=== PATIENT | male | born 1985 | race Caucasian/White ===

== ENCOUNTER 2017-11-22 17:59 | Emergency (ER) | payer MEDICAID, OTHER ==
[2017-11-22 18:17] VITALS: BP 133/65
--- NOTE | 2017-11-22 18:51 | UC ---
Cardiac HPI - HPI Summary HPI Summary: Patient here with girlfriend and brother complaining of sudden onset of midsternal, sharp, burning chest pain that started while he was sitting eating dinner. He denies any recent unusual stress or substance abuse. He complains of associated shortness of breath, dizziness, nausea, headache and tunnel vision. He is extremely anxious about his symptoms as his brother a year ago at age 30 from a cardiac arrest. - History of Current Complaint Chief Complaint: UCChestPain Stated Complaint: SOB Time Seen by Provider: 11/22/17 18:03 Hx Obtained From: Patient, Family/Shoe Dyer - GIRLFRIEND, BROTHER Onset/Duration: Sudden Onset, Lasting Hours - 1 HOUR Initial Severity: Moderate Current Severity: Moderate Pain Intensity: 5 Chest Pain Location: Mid Sternal Character: Sharp/Stabbing Aggravating Factor(s): Nothing Alleviating Factor(s): Nothing Associated Signs & Symptoms: Positive: Chest Pain, Vision Changes, Anxiety, Headaches, Dizziness, SOB, Nausea/Vomiting - Geo melena - Allergy/Home Medications Allergies/Adverse Reactions: Allergies Allergy/AdvReac Type Severity Reaction Status Date / Time haloperidol Allergy Anaphylatic Verified 11/22/17 18:09 Shock Home Medications: Home Medications Buprenorphine HCl/Naloxone HCl [Suboxone 8 mg-2 mg Sl Film] 1 mis SL BID [History Confirmed 11/22/17] LORazepam TAB(*) [Ativan 0.5 MG TAB (*)] 0.5 mg PO BEDTIME PRN 11/22/17 [ History Confirmed 11/22/17] Sertraline HCl [Zoloft] 1 tab PO DAILY 11/22/17 [History Confirmed 11/22/17] PMH/Surg Hx/FS Hx/Imm Hx Cardiovascular History: Hypertension Psychological History: Anxiety - Surgical History Surgical History: Yes Surgery Procedure, Year, and Place: Appendectomy - Family History Known Family History: Positive: Cardiac Disease, Renal Disease - Social History Alcohol Use: Occasionally Alcohol Amount: states he had one beer today Substance Use Type: Prescribed Substance Use Comment - Amount & Last Used: xANAX as needed Smoking Status (MU): Heavy Every Day Tobacco Smoker Amount Used/How Often: 1ppd Review of Systems Constitutional: Negative Eyes: Other - TUNNEL VISION ENT: Negative Respiratory: Shortness Of Breath Cardiovascular: Chest Pain Gastrointestinal: Nausea Genitourinary: Negative Neurological: Headache Psychological: Anxious All Other Systems Reviewed And Are Negative: Yes Physical Exam Triage Information Reviewed: Yes Appearance: No Pain Distress, Well-Nourished, Other: - APPEARS ANXIOUS Vital Signs: Initial Vital Signs Temp 99.1 F 11/22/17 18:11 Pulse 79 11/22/17 18:11 Resp 22 11/22/17 18:11 BP 133/65 11/22/17 18:11 Pulse Ox 99 11/22/17 18:11 Vital Signs Reviewed: Yes Eyes: Positive: Conjunctiva Clear ENT: Positive: Hearing grossly normal Neck: Positive: Supple, Nontender, No Lymphadenopathy Respiratory Exam: Normal Cardiovascular Exam: Normal Abdomen Description: Positive: Soft Musculoskeletal: Positive: No Edema Neurological: Positive: Alert Psychological: Positive: Normal Response To Family, Age Appropriate Behavior, Other: - VISIBLY ANXIOUS Skin: Negative: rashes Diagnostics - EKG Cardiac Rate: NL - 69BPM Cardiac Rhythm: Sinus: Normal Ectopy: None ST Segment: Normal - Assessment/Plan Course Of Treatment: PT'S SX LIKELY DUE TO ANXIETY AND PANIC ATTACK. PT'S BROTHER A YEAR AGO DUE TO HEART ATTACK. WAS A DIALYSIS PT - HAD CONGENITAL KIDNEY CONDITION. PT IS EXTREMELY ANXIOUS ABOUT HIS SX AND IS DESIRING A CARDIAC WORK-UP. PT OFFERED TRANSPORT BY AMBULANCE BUT DECLINES. ADVISED THAT BY NOT TRAVELING IN A MONITORED SETTING HE COULD BE RISKING WORSENING OF HIS CONDITION THAT COULD POSE A THREAT TO HIS LIFE, HEALTH AND MEDICAL SAFETY. HE VERBALIZES UNDERSTANDING AND CONTINUES TO DECLINE AMBULANCE TRANSFER. - Clinical Impression Provider Diagnoses: CHEST PAIN Discharge - Sign-Out/Discharge Documenting (check all that apply): Discharge - Discharge Plan Condition: Stable Disposition: HOME Patient Education Materials: Chest Pain (ED) Referrals: Stephen Henley NP [Primary Care Provider] - If Needed Additional Instructions: GO DIRECTLY TO THE [facility] [place] FROM HERE FOR FURTHER EVALUATION. YOU HAVE DECLINED AMBULANCE TRANSFER. BE ADVISED THAT BY NOT TRAVELING IN A MONITORED SETTING YOU COULD BE RISKING WORSENING OF YOUR CONDITION THAT COULD POSE A THREAT TO YOUR LIFE, HEALTH AND MEDICAL SAFETY. - Billing Disposition and Condition Condition: STABLE Disposition: HOME
== END 2017-11-22 18:50 | disposition home or self-care (01) ==
LOC: UCEAST 17:59
DX: R07.89 Other chest pain (principal); F17.200 Nicotine dependence, unspecified, uncomplicated; Z82.49 Family history of ischemic heart disease and other diseases of the circulatory system; Z88.8 Allergy status to other drugs, medicaments and biological substances
CPT/HCPCS: 93005; 99201; G0463

== ENCOUNTER 2018-03-28 17:50 | Emergency (ER) | payer OTHER ==
[2018-03-28] MEDS ORDERED: NS 0.9% 1000 ML* 1,000 ML IV ONE (18:29)
[2018-03-28 18:54] LABS: EGFR Non-African American 96.6 (>60)
[2018-03-28 18:56] LABS: ABS Basophils 0 10^3/ul (0-0.2); ABS Eosinophils 0.1 10^3/ul (0-0.6); ABS Monocytes 0.7 10^3/ul (0-0.8); ABS Neutrophils 5.1 10^3/ul (1.5-7.7); ABS Nucleated RBC 0 10^3/ul; Eosinophil % 0.7 % (0-6); Hematocrit 41 % (42-52); Hemoglobin 13.4 g/dl (14.0-18.0); Lymphocyte % 25.8 % (25-47); Mean Corpuscular HGB Conc 33 g/dl (31-36); Mean Corpuscular Hemoglobin 25 pg (27-31); Mean Corpuscular Volume 77 fL (80-94); Mean Platelet Volume 8.9 um3 (7.4-10.4); Nucleated Red Blood Cells % 0; Platelet Count 244 10^3/ul (150-450); Red Blood Count 5.31 10^6/ul (4.00-5.40); Red Cell Distribution Width 16 % (10.5-15); White Blood Count 7.9 10^3/ul (3.5-10.8)
--- NOTE | 2018-03-28 19:17 | ED ---
Substance Abuse/Use - HPI Summary HPI Summary: This is scribe Zhao Geronimosain documenting for attending Dr. Carlito Rojas MD. A 32 y/o male presents to ED s/p overdose. Upon entering the ED room, the patient is calm, cooperative and staring at his phone. As per triage, "Pt says he overdosed on bath salts. Pt says he feels like his head is going to explode, and he is paranoid". According to the patient he overdose on 3.5 grams of bath salts 1.5 hours ago. He also noted that he took other substances like tenisha, but he said they were just bath salts. Parents were not home when it happened, but when they found him he could barely breathe as he was taking short deep breathes. They thought he was having a heart attack. As per father, he keeps telling everyone something different on the drugs he took, as he told him that he took enough speeders for 3 people. Initially, the patient noted he just wanted to get high, but during examination, he stated that he took it because he doesn't want to live this way anymore and wants to end his life. He noted that he use to use painkillers. He stated that "things are wrong right now and don't have a job". The patient has never had a suicidal attempt before but has had past SI. Patient knows the date and his location. Current medications are Lorazepam. PMHx of carpel tunnel, leg surgery DM and appendectomy. SHx of ETOH weekly and daily cigarette smoker. ] - History Of Current Complaint Chief Complaint: EDOverdose Stated Complaint: POSS OVERDOSE Time Seen by Provider: 03/28/18 18:16 Hx Obtained From: Patient Ingestion History: Type/Name Of Drug - Bath salts., Approximate Time Of Ingestion - 1.5 hours ago Character: Depressed, Anxious Aggravating Factor(s): Recent Stress Alleviating Factor(s): Nothing Associated Signs And Symptoms: Shortness Of Breath - RESOLVED Related Hx: Suicidal: Thoughts - Allergies/Home Medications Allergies/Adverse Reactions: Allergies Allergy/AdvReac Type Severity Reaction Status Date / Time haloperidol Allergy Anaphylatic Verified 11/22/17 18:09 Shock PMH/Surg Hx/FS Hx/Imm Hx Endocrine/Hematology History: Reports: Hx Diabetes Cardiovascular History: Reports: Hx Hypercholesterolemia Psychiatric History: Reports: Hx Anxiety - Surgical History Surgery Procedure, Year, and Place: Appendectomy Infectious Disease History: No Infectious Disease History: Denies: Traveled Outside the [place] in Last 30 Days - Family History Known Family History: Positive: Cardiac Disease, Renal Disease - Social History Alcohol Use: Occasionally Alcohol Amount: states he had one beer today Substance Use Type: Reports: Prescribed, Tranquilizers Substance Use Comment - Amount & Last Used: xANAX as needed, bath salts Smoking Status (MU): Heavy Every Day Tobacco Smoker Amount Used/How Often: 1ppd Review of Systems Negative: Fever Positive: Shortness Of Breath - RESOLVED Neurological: Other - POSITIVE: SI All Other Systems Reviewed And Are Negative: Yes Physical Exam - Summary Physical Exam Summary: VITAL SIGNS: Reviewed. GENERAL: Young male who is in poor hygiene is lying comfortable in the stretcher. Patient is not in any acute respiratory distress. Patient seems to be under to substance of some drug. HEAD AND FACE: No signs of trauma. No ecchymosis, hematomas or skull depressions. No sinus tenderness. EYES: PERRLA, EOMI x 2, No injected conjunctiva, no nystagmus. EARS: Hearing grossly intact. Ear canals and tympanic membranes are within normal limits. MOUTH: Oropharynx within normal limits. NECK: Supple, trachea is midline, no adenopathy, no JVD, no carotid bruit, no c- spine tenderness, neck with full ROM. CHEST: Symmetric, no tenderness at palpation LUNGS: Clear to auscultation bilaterally. No wheezing or crackles. CVS: Regular rate and rhythm, S1 and S2 present, no murmurs or gallops appreciated. ABDOMEN: Soft, non-tender. No signs of distention. No rebound no guarding, and no masses palpated. Bowel sounds are normal. EXTREMITIES: FROM in all major joints, no edema, no cyanosis or clubbing. NEURO: Alert and oriented x 3. No acute neurological deficits. Speech is normal and follows commands. SKIN: Dry and warm PSYCH: Depressed, quiet, and denies any suicidal thoughts or plan. No homicidal thoughts or plan. No signs of psychosis or pressure speech. No tangential speech. Triage Information Reviewed: Yes Vital Signs On Initial Exam: Initial Vitals Temp Pulse Resp BP Pulse Ox 98.7 F 98 17 135/88 96 03/28/18 17:52 03/28/18 17:52 03/28/18 17:52 03/28/18 17:52 03/28/18 17:52 Vital Signs Reviewed: Yes Diagnostics - Vital Signs Vital Signs Temp Pulse Resp BP Pulse Ox 03/28/18 18:41 92 19 149/99 98 03/28/18 18:11 90 160/84 98 03/28/18 17:52 98.7 F 98 17 135/88 96 - Laboratory Lab Results: Lab Results 03/28/18 03/28/18 Range/Units 18:17 18:17 WBC 7.9 (3.5-10.8) 10^3/ul RBC 5.31 (4.00-5.40) 10^6/ul Hgb 13.4 L (14.0-18.0) g/dl Hct 41 L (42-52) % MCV 77 L (80-94) fL MCH 25 L (27-31) pg MCHC 33 (31-36) g/dl RDW 16 H (10.5-15) % Plt Count 244 (150-450) 10^3/ul MPV 8.9 (7.4-10.4) um3 Neut % (Auto) 64.5 (38-83) % Lymph % (Auto) 25.8 (25-47) % Vermilion % (Auto) 8.7 H (0-7) % Eos % (Auto) 0.7 (0-6) % Baso % (Auto) 0.3 (0-2) % Absolute Neuts (auto) 5.1 (1.5-7.7) 10^3/ul Absolute Lymphs (auto) 2.0 (1.0-4.8) 10^3/ul Absolute Monos (auto) 0.7 (0-0.8) 10^3/ul Absolute Eos (auto) 0.1 (0-0.6) 10^3/ul Absolute Basos (auto) 0 (0-0.2) 10^3/ul Absolute Nucleated RBC 0 10^3/ul Nucleated RBC % 0 Sodium 139 (135-145) mmol/L Potassium 4.2 (3.5-5.0) mmol/L Chloride 105 (101-111) mmol/L Carbon Dioxide 24 (22-32) mmol/L Anion Gap 10 (2-11) mmol/L BUN 21 (6-24) mg/dL Creatinine 0.92 (0.67-1.17) mg/dL Est GFR ( Amer) 116.9 (>60) Est GFR (Non-Af Amer) 96.6 (>60) BUN/Creatinine Ratio 22.8 H (8-20) Glucose 102 H (70-100) mg/dL Calcium 10.0 (8.6-10.3) mg/dL Total Bilirubin 0.50 (0.2-1.0) mg/dL AST 77 H (13-39) U/L ALT 103 H (7-52) U/L Alkaline Phosphatase 56 (34-104) U/L Total Protein 8.0 (6.4-8.9) g/dL Albumin 4.7 (3.2-5.2) g/dL Globulin 3.3 (2-4) g/dL Albumin/Globulin Ratio 1.4 (1-3) TSH Pending Salicylates < 2.50 (<30) mg/dL Acetaminophen < 15 mcg/mL Serum Alcohol < 10 (<10) mg/dL Result Diagrams: 03/28/18 18:17 03/28/18 18:17 Lab Statement: Any lab studies that have been ordered have been reviewed, and results considered in the medical decision making process. Re-Evaluation - Re-Evaluation First Eval Re-Evaluation Time: 21:57 Comment: As per nurse, she ordered nicotine gum because the patient wanted to chew on something. The patient ended up chewing on the IV. Course/Dx - Course Assessment/Plan: Blood tests without any significant abnormality except for slight anemia, and increased LFTs. The patient is medically clear. The patient is awaiting for mental health ablation. Patient will be signed out to Dr. Brennan at shift change. - Diagnoses Provider Diagnoses: Depression Discharge - Sign-Out/Discharge Documenting (check all that apply): Sign-Out Patient Signing out patient TO: Melvin Tilley Receiving patient FROM: Carlito Rojas - Discharge Plan Referrals: Pb Burris MD [Primary Care Provider] -
[2018-03-28] MEDS ORDERED: Nicotine GUM* 2 MG PO PRN (19:56)
[2018-03-28] MEDS ORDERED: Nicotine GUM* 2 MG ONE (19:58)
[2018-03-28 21:24] LABS: Urine Appearance Clear; Urine Blood Negative (Negative); Urine Color Yellow; Urine Ketones 1+ (Negative); Urine Protein Negative (Negative); Urine Red Blood Cell Trace(0-2/hpf) (Absent); Urine Specific Gravity 1.023 (1.010-1.030); Urine Urobilinogen Negative (Negative); Urine White Blood Cell 1+(6-10/hpf) (Absent)
--- NOTE | 2018-03-28 22:51 | ED ---
Progress - Progress Note Progress Note: This is theodore Tao documenting for attending Dr. Melvin Tilley MD. This patient was signed out from , pending disposition, awaiting MHE. The patients diagnosis is substance abuse. He will be discharged home under stable conditions. Patient is agreeable with this plan. - Consult/PCP Time Called: 21:35 Re-Evaluation - Re-Evaluation First Eval Re-Evaluation Time: 21:57 Comment: As per nurse, she ordered nicotine gum because the patient wanted to chew on something. The patient ended up chewing on the IV. Course/Dx - Diagnoses Provider Diagnoses: Depression, Substance abuse Discharge - Sign-Out/Discharge Documenting (check all that apply): Patient Departure - Pt will be discharged home., Receiving Sign-Out Receiving patient FROM: Carlito Rojas - Patient was a signout pending disposition , awaiting MHE. - Discharge Plan Condition: Improved Disposition: HOME Referrals: Pb Burris MD [Primary Care Provider] - - Billing Disposition and Condition Condition: IMPROVED Disposition: Home
[2018-03-28] MEDS ORDERED: Buprenorphine/Naloxone 8-2 MG SL TAB* 1 TAB PO ONE (23:14)
[2018-03-28 23:17] VITALS: BP 123/81
== END 2018-03-28 23:15 | disposition home or self-care (01) ==
LOC: ED 17:50
DX: F32.9 Major depressive disorder, single episode, unspecified (principal); F19.10 Other psychoactive substance abuse, uncomplicated; F41.9 Anxiety disorder, unspecified; Z88.8 Allergy status to other drugs, medicaments and biological substances; Z82.49 Family history of ischemic heart disease and other diseases of the circulatory system; Z84.1 Family history of disorders of kidney and ureter; F17.210 Nicotine dependence, cigarettes, uncomplicated
CPT/HCPCS: 36415; 80053; 80307; 80320; 80329; 81003; 81015; 84443; 85025; 87086; 96360; 99285; A9270-GY; G0480

== ENCOUNTER 2018-08-18 22:03 | Inpatient (IN) | payer OTHER ==
[2018-08-18] MEDS ORDERED: Nicotine Inhaler* 10 MG AMP INH PRN (22:36)
[2018-08-18] MEDS ORDERED: KETAMINE HCL* 50 MG/ML 10 ML VIAL IM ONE (22:36)
[2018-08-18] MEDS ORDERED: Mouth Piece, Nicotine* 1 EACH CARTRIDGE INH PRN (22:40)
--- NOTE | 2018-08-18 22:46 | ED ---
Substance Abuse/Use - HPI Summary HPI Summary: LEVEL 5 CAVEAT: Patient is uncooperative. This patient is a 32 year old M brought in by ambulance to [facility] with a chief complaint of taking too much Klonopin tonight. Per police, patient was caught kicking in doors, was very agitated, and stated suicidal ideations. He has a PMHx of depression and PTSD. Patient admits to taking Klonopin but otherwise history is limited by his agitation/intoxication. Level V caveat for history. - History Of Current Complaint Stated Complaint: 941 Hx Obtained From: EMS, Other: - Police Hx From Patient Unobtainable Due To: Altered Mental Status Onset/Duration of Drug/ETOH Abuse: Hours - Earlier today Ingestion History: Type/Name Of Drug - Klonopin - Allergies/Home Medications Allergies/Adverse Reactions: Allergies Allergy/AdvReac Type Severity Reaction Status Date / Time haloperidol Allergy Anaphylatic Verified 11/22/17 18:09 Shock PMH/Surg Hx/FS Hx/Imm Hx Endocrine/Hematology History: Reports: Hx Diabetes Cardiovascular History: Reports: Hx Hypercholesterolemia, Hx Hypertension Psychiatric History: Reports: Hx Anxiety Denies: Hx of Violent Episodes Against Others - Surgical History Surgery Procedure, Year, and Place: Appendectomy Infectious Disease History: Denies: Traveled Outside the [place] in Last 30 Days - Family History Known Family History: Positive: Cardiac Disease, Renal Disease - Social History Alcohol Use: Occasionally Alcohol Amount: states he had one beer today Substance Use Type: Reports: Prescribed, Tranquilizers Substance Use Comment - Amount & Last Used: xANAX as needed, bath salts Smoking Status (MU): Heavy Every Day Tobacco Smoker Amount Used/How Often: 1ppd Review of Systems All Other Systems Reviewed And Are Negative: No - Comments Additional Review of Systems Comments: Level V caveat, patient unable to provide review of systems due to agitation/ intoxication Physical Exam - Summary Physical Exam Summary: Appearance: Well appearing, no pain distress Skin: warm, dry, reflects adequate perfusion Head/face: normal Eyes: Pupils small ENT: mucous membranes moist Neck: supple, non-tender Respiratory: CTA, breath sounds present Cardiovascular: RRR, pulses symmetrical Abdomen: non-tender, soft Bowel Sounds: present Musculoskeletal: normal, strength/ROM intact. Ankles show no deformity and no swelling. Neuro: normal, sensory motor intact, A&Ox3 Triage Information Reviewed: Yes Vital Signs Reviewed: Yes Completion Of Physical Exam Limited Due To: Altered Mental Status, Level 5 Diagnostics - Laboratory Result Diagrams: 08/18/18 22:48 08/18/18 22:48 Lab Statement: Any lab studies that have been ordered have been reviewed, and results considered in the medical decision making process. Re-Evaluation - Re-Evaluation First Eval Change: Improved - Patient has remained calm with stable vital signs and oxygenation throughout the night. Course/Dx - Course Course Of Treatment: Nurses note reviewed. Patient was extremely agitated, tearful on arrival. He required the presence of multiple police officers and security in order to get him to disrobe. He had to be restrained and sedated with ketamine. He was able to sleep after this and was removed from restraints. He remained stable through the night and is signed out to oncoming ER physician pending sobriety and mental health evaluation. - Diagnoses Differential Diagnosis/HQI/PQRI: Positive: Acute Psychosis, Alcohol Abuse, Anxiety, Depression, Drug Abuse, Metabolic Disorder Provider Diagnoses: Benzodiazepine overdose, Agitation, Depression - Critical Care Time Critical Care Time: 30-74 min - CCT is EXCLUSIVE of separately billable procedures. Discharge - Sign-Out/Discharge Documenting (check all that apply): Sign-Out Patient Signing out patient TO: Woodrow Mota - Pending sobriety, he'll need MHE - Discharge Plan Condition: Stable Referrals: Pb Burris MD [Primary Care Provider] - - Billing Disposition and Condition Condition: STABLE - Attestation Statements Document Initiated by Scribe: Yes Documenting Scribe: [place] Provider For Whom Scribe is Documenting (Include Credential): Akbar Monson MD Scribe Attestation: [place], scribed for Akbar Monson MD on 08/19/18 at 0621. Scribe Documentation Reviewed: Yes Provider Attestation: The documentation as recorded by the [place] accurately reflects the service I personally performed and the decisions made by , Akbar Monson MD Status of Scribe Document: Viewed
[2018-08-18 23:28] LABS: ABS Basophils 0 10^3/ul (0-0.2); ABS Eosinophils 0.3 10^3/ul (0-0.6); ABS Lymphocytes 2.4 10^3/ul (1.0-4.8); ABS Monocytes 0.5 10^3/ul (0-0.8); ABS Neutrophils 2.3 10^3/ul (1.5-7.7); ABS Nucleated RBC 0 10^3/ul; Eosinophil % 5.9 %; Hematocrit 39 % (42-52); Hemoglobin 12.5 g/dl (14.0-18.0); Lymphocyte % 43.3 %; Mean Corpuscular HGB Conc 32 g/dl (31-36); Mean Corpuscular Hemoglobin 25 pg (27-31); Mean Corpuscular Volume 76 fL (80-94); Mean Platelet Volume 8.6 fL (7.4-10.4); Nucleated Red Blood Cells % 0; Platelet Count 217 10^3/ul (150-450); Red Blood Count 5.08 10^6/ul (4.00-5.40); Red Cell Distribution Width 16 % (10.5-15); White Blood Count 5.6 10^3/ul (3.5-10.8)
[2018-08-18 23:36] LABS: ALT 12 U/L (7-52); AST 22 U/L (13-39); Acetaminophen < 15 mcg/mL; Albumin 4.5 g/dL (3.2-5.2); Albumin/Globulin Ratio 1.6 (1-3); Alcohol < 10 mg/dL (<10); Alkaline Phosphatase 53 U/L (34-104); Anion Gap 7 mmol/L (2-11); BUN/Creatinine Ratio 18.6 (8-20); Blood Urea Nitrogen 16 mg/dL (6-24); CO2 Carbon Dioxide 29 mmol/L (22-32); Calcium 9.4 mg/dL (8.6-10.3); Chloride 103 mmol/L (101-111); EGFR Non-African American 104.4 (>60); Globulin 2.8 g/dL (2-4); Glucose 162 mg/dL (70-100); Potassium 3.9 mmol/L (3.5-5.0); Salicylate < 2.50 mg/dL (<30); Sodium 139 mmol/L (135-145); Total Protein 7.3 g/dL (6.4-8.9)
[2018-08-18 23:50] LABS: TSH (Thyroid Stimulating Horm) 1.94 mcIU/mL (0.34-5.60)
--- NOTE | 2018-08-19 07:33 | ED ---
Progress - Progress Note Progress Note: This pt was signed out by Dr. Monson at shift change pending sobriety and subsequent mental health evaluation. Per mental health signaling project engineer, "he is lethargic, barely arousable, with slurred speech and garbled speech." Mental health evaluation is still pending. Pt will be signed out Dr. Monson at shift change. Course/Dx - Diagnoses Provider Diagnoses: Rhabdomyolysis, Drug abuse, Polysubstance overdose Discharge - Sign-Out/Discharge Documenting (check all that apply): Sign-Out Patient, Receiving Sign-Out Signing out patient TO: Akbar Monson - pending sobriety and MHE Receiving patient FROM: Akbar Monson - Discharge Plan Condition: Improved Disposition: ADMITTED TO [facility] - Billing Disposition and Condition Condition: IMPROVED Disposition: Admitted to [facility] - Attestation Statements Document Initiated by Scribe: Yes Documenting Scribe: Yessica Eddy Provider For Whom Scribe is Documenting (Include Credential): Woodrow Mota MD Scribe Attestation: Yessica [place] scribed for Woodrow Mota MD on 08/23/18 at 0435. Scribe Documentation Reviewed: Yes Provider Attestation: The documentation as recorded by the Yessica jaimes accurately reflects the service I personally performed and the decisions made by Woodrow claire MD Status of Scribe Document: Viewed
[2018-08-19 12:00] LABS: Urine Appearance Cloudy; Urine Bilirubin Negative (Negative); Urine Blood Negative (Negative); Urine Color Yellow; Urine Glucose Negative (Negative); Urine Ketones Negative (Negative); Urine Nitrite Negative (Negative); Urine Protein Negative (Negative); Urine Specific Gravity 1.026 (1.010-1.030); Urine Urobilinogen Negative (Negative)
[2018-08-19 12:13] LABS: Barbiturates Urine Screen None Detected (None Detect); Benzodiazepine Urine Screen Presumptive Positive (None Detect); Urine Cannabinoids Screen Presumptive Positive (None Detect)
--- NOTE | 2018-08-19 15:18 | PN ---
Progress Note - Progress Note Date of Service: 08/19/18 Note: S: Psychiatrist attempted to interview this 32 y.o. white gentleman with a history of polysubstance misuse in Room #8 of the ED. He was asleep and unarousable. I am informed that he made suicidal statements to law enforcement and ED staff and was agitated, requiring prn medications, including ketamine for chemical restraint. O: young bearded white male in scrubs with tattoos; asleep and unarousable UDS positive for benzos/cocaine/amphetamines/cannabis and opioids A: Polydrug intoxication P: await arousal to perform crisis evaluation
--- NOTE | 2018-08-19 20:16 | ED ---
Progress - Progress Note Progress Note: Sign-out received from Dr. Mota at shift change pending sobriety and MHE. 2021: ED provider at bedside Pt is easily aroused but drowsy. He does not know why he is in the ED. Will order repeat labs. Pt is requesting food. 2032: ED provider at bedside. Pt is alert, and states he remembers the event with the police. He says he was not SI at the time of the incident, he was upset because his left him, and he told the police "wouldn't you want to if your left you? Pt denies SI at bedside at this time. We attempted twice to have mental health perform an evaluation. The patient had been up and alert and talking to me with recollection of the events that led up to his transport here. Each time he became drowsy and went to sleep during their evaluation. He also began to complain of pain in the buttocks. A head CT was performed and was negative. Repeat laboratories were performed and showed elevation of CPK at nearly 5000. 2 L IV fluids were started. Consultation was made with the hospitalist who will admit for medical cause and treatment of rhabdomyolysis. Full psychiatric evaluation will be made when able. - Results/Orders Results/Orders: Brain CT as read by radiologist: IMPRESSION: No acute findings. ED provider has reviewed this report. Re-Evaluation - Re-Evaluation First Eval Change: Improved - Patient has remained calm with stable vital signs and oxygenation throughout the night. Course/Dx - Course Course Of Treatment: Sign-out received from Dr. Mota at shift change pending sobriety and MHE. Nurses note reviewed. Pt is medically clear for MHE at 2029. At 2125: Consult with Capsule Machine Operator: Dr. Braxton, psych, is requesting pt hold until evaluation can be more reliable. - Diagnoses Provider Diagnoses: Rhabdomyolysis, Drug abuse, Polysubstance overdose - Provider Notifications Discussed Care Of Patient With: Paula Walsh - hospitalist Time Discussed With Above Provider: 03:38 Instructed by Provider To: Admit As Inpatient - Critical Care Time Critical Care Time: 75-104 min - 75 mins. CCT is EXCLUSIVE of separately billable procedures. Includes multiple re-evaluations, observations Discharge - Sign-Out/Discharge Documenting (check all that apply): Patient Departure - ADMIT, Receiving Sign- Out Receiving patient FROM: Woodrow Mota - Discharge Plan Condition: Guarded Disposition: ADMITTED TO [facility] - Billing Disposition and Condition Condition: GUARDED Disposition: Admitted to [facility] - Attestation Statements Document Initiated by Jacey: Yes Documenting Scribe: David Haines Provider For Whom Jacey is Documenting (Include Credential): Dr. Akbar Monson MD Scribe Attestation: David [place] scribed for Dr. Akbar Monson MD on 08/20/18 at 0442. Scribe Documentation Reviewed: Yes Provider Attestation: The documentation as recorded by the David jaimes accurately reflects the service I personally performed and the decisions made by , Dr. Akbar Monson MD Status of Scribe Document: Viewed
[2018-08-19] MEDS ORDERED: NS 0.9% 1000 ML* 1,000 ML IV ONE (20:24)
[2018-08-20 02:44] LABS: ABS Basophils 0 10^3/ul (0-0.2); ABS Eosinophils 0.2 10^3/ul (0-0.6); ABS Lymphocytes 1.8 10^3/ul (1.0-4.8); ABS Monocytes 0.7 10^3/ul (0-0.8); ABS Neutrophils 4.3 10^3/ul (1.5-7.7); ABS Nucleated RBC 0 10^3/ul; Eosinophil % 2.9 %; Hematocrit 42 % (42-52); Hemoglobin 13.3 g/dl (14.0-18.0); Lymphocyte % 26.3 %; Mean Corpuscular HGB Conc 32 g/dl (31-36); Mean Corpuscular Hemoglobin 25 pg (27-31); Mean Corpuscular Volume 78 fL (80-94); Mean Platelet Volume 8.8 fL (7.4-10.4); Nucleated Red Blood Cells % 0.1; Platelet Count 189 10^3/ul (150-450); Red Blood Count 5.38 10^6/ul (4.00-5.40); Red Cell Distribution Width 17 % (10.5-15)
[2018-08-20 03:00] LABS: BUN/Creatinine Ratio 13.8 (8-20); EGFR Non-African American 94.2 (>60); Potassium 4.3 mmol/L (3.5-5.0)
[2018-08-20] MEDS ORDERED: NS 0.9% 1000 ML* 1,000 ML IV ONE ×2 (03:34→03:35)
[2018-08-20] MEDS ORDERED: Ondansetron INJ* 2 MG/ML VIAL IV PRN (04:07)
[2018-08-20] MEDS ORDERED: Al Hydrox/Mg Hydrox/Simet LIQ* 30 ML UDC PO PRN (04:07)
[2018-08-20] MEDS ORDERED: Acetaminophen TAB* 325 MG PO PRN (04:07)
[2018-08-20] MEDS ORDERED: NS 0.9% 1000 ML* 1,000 ML IV SCH ×2 (04:15→09:14)
[2018-08-20 04:28] LABS: Total Bilirubin 0.3 mg/dL (0.2-1.0)
[2018-08-20 08:59] LABS: C Reactive Protein 23.31 mg/L (<8.01)
[2018-08-20] MEDS ORDERED: Lactulose* 15 ML UDC PO SCH (09:00)
--- NOTE | 2018-08-20 09:43 | HP ---
CC: Pb Burris MD HISTORY AND PHYSICAL: DATE OF ADMISSION: 08/20/18 TIME OF EVALUATION: 0400 PRIMARY CARE PHYSICIAN: Pb Burris MD CHIEF COMPLAINT: Agitation, altered mental status. HISTORY OF PRESENT ILLNESS: This is a 32-year-old male whose history was obtained from mainly the chart and the staff as the patient is very somnolent and not able to articulate many details. He was brought in to the emergency room via EMS and police 30 hours ago. Per the police, he was kicking on the doors and banging, agitated, stating he has suicidal ideations with the recent breakup of his girlfriend, trying to get access to her at [facility]. They brought him in. He was significantly agitated. Several police officers and security had to restrain him and he ended up being sedated with ketamine. He was able to sleep it off and removed from restraints and a mental health eval was placed. Dr. Borrero evaluated the patient this afternoon after the patient appeared to be waking up, he was asleep and unarousable. Their recommendation was to perform a crisis evaluation when he becomes more alert and oriented. The patient was up earlier out of bed eating a turkey sandwich and chocolate milk. They are concerned that the patient has been here for 30 hours, not waking up. They did screening labs and found that he had a significantly elevated CK. The patient is complaining of lower extremity and buttock pain. Limited history due to the patient's somnolence, unwillingness to participate, and continuing to fall asleep during my encounter, but he does deny any chest pain or shortness of breath. No nausea. Denies any suicidal ideation at this time. He is alert and oriented x3. He does state he took Klonopin and Suboxone earlier prior to his admission. In the emergency room, as mentioned, the patient got a liter of fluid, he got ketamine initially on arrival 30 hours ago. Otherwise, review of systems limited due to the patient's somnolence. PAST MEDICAL HISTORY: 1. Depression. 2. PTSD. 3. Polysubstance abuse. MEDICATIONS: According to the med rec: 1. Klonopin 1 mg p.o. b.i.d. as needed. 2. ReQuip 2 mg p.o. daily. 3. Gabapentin 600 mg p.o. b.i.d. 4. Suboxone 3 films sublingual daily. ALLERGIES: HALOPERIDOL, develops anaphylactic shock. FAMILY HISTORY: Unable to obtain due to the patient's somnolence. SOCIAL HISTORY: It appears the patient was living with his girlfriend who is now his ex-girlfriend who is at [facility]. He is now living alone. He admits to smoking. Will not admit any illicit drug activity. Unsure of his healthcare proxy. REVIEW OF SYSTEMS: Limited due to the patient's somnolence. PHYSICAL EXAMINATION GENERAL: The patient is sleeping, but awakens to voice. He is diaphoretic appearing. VITAL SIGNS: Temp 98, pulse rate 77, respiratory rate 16, oxygen saturation 100 % on oxy mask, blood pressure 122/57. HEENT: Head: Normocephalic. Pupils are pinpoint and reactive. Conjunctivae are injected. Oropharynx: Mucous membranes moist. NECK: Supple. No lymphadenopathy. RESPIRATORY: Diminished breath sounds. No wheezes, rhonchi, rales. CARDIAC: Regular rate rhythm. Soft systolic murmur heard throughout. ABDOMEN: Soft, nontender, nondistended. EXTREMITIES: No clubbing, cyanosis or edema. +2 DPs. MUSCULOSKELETAL: He has pain with palpation and movement of his bilateral lower extremities. NEUROLOGIC: He is alert and oriented x3. DERM: No obvious lesions or rashes. LABORATORY DATA: White count is 7, hemoglobin 13.3, hematocrit 42, platelets 189,000. Sodium 139, potassium 4.3, chloride 103, bicarb 31, BUN 13, creatinine 0.94. CK is 4891. TSH 1.94. Tox screen on arrival with positive opiates, amphetamines, benzodiazepines, cocaine, cannabinoids and negative alcohol, Tylenol, and salicylates. RADIOGRAPHIC DATA: Head CT shows no acute findings. ASSESSMENT AND PLAN: This is a 32-year-old male with past medical history of polysubstance abuse and depression, returning to the emergency room 30 hours ago with agitation and suicidal ideation, who was planning for mental health eval, but has continued to be somnolent with no clear etiology and now found with an elevated CK. 1. Somnolence. Assessment: It is unclear if this is related to his polysubstance abuse and his overdose, but that is the most likely scenario. His electrolytes are within normal limits with no acidosis. He does appear diaphoretic. Plan: We will check an ammonia and ABG, add on LFTs. We will check an EKG. We will order Psych to continue seeing him, social work eval and a one-to-one until he is more clear from a mental health standpoint. 2. Elevated CK. The patient's findings are consistent with rhabdomyolysis. His renal function is within normal limits. It is likely related to his somnolence, lying in bed for 30 hours and he was also pounding on the doors at the [facility] [place] prior to his admission. Plan: We will continue with aggressive IV fluids and repeat his labs in the morning. CHRONIC MEDICAL PROBLEMS: 1. History of mental health disorder and polysubstance abuse. We will hold his home medications for now as there is concern that it is possible that he overdosed on his home meds due to the somnolence, and defer to Psych for recommendations. 2. FEN: The patient is awake and does eat without issue as he did earlier this evening. We will continue regular diet unless he does not awake to voice or becomes more somnolent. 3. DVT prophylaxis: The patient scores 0. We will place him on SCDs and encourage ambulation. 4. Code status: Full code. TIME SPENT: Greater than 30 minutes was spent doing the history and physical, more than half the time spent in direct patient contact. [id number]/CPS #: [id number] FRANCOISE
[2018-08-20] MEDS ORDERED: Buprenorp/Nalox 8-2 MG FILM 1 EACH SL FILM SCH (10:00)
[2018-08-20] MEDS: clonazePAM TAB(*) 1 MG PO PRN ×2 (10:20→20:49)
[2018-08-20] MEDS: NS 0.9% 1000 ML* 2,000 ML IV ONE ×2 (10:22→11:31)
--- NOTE | 2018-08-20 12:11 | PN ---
Subjective Date of Service: 08/20/18 Interval History: Pt is mildly lethargic. C/o pain all over since he was "beaten up by the police "- as he stated. R ankle is very painful Objective Active Medications: Acetaminophen (Tylenol Tab*) 650 mg PO Q4H PRN PRN Reason: FEVER/PAIN Last Admin: 08/20/18 10:20 Dose: 650 mg Al Hydrox/Mg Hydrox/Simethicone (Maalox Plus*) 30 ml PO Q6H PRN PRN Reason: INDIGESTION Buprenorphine/Naloxone (Suboxone 8 Mg-2 Mg Sl Film) 1 each SL FILM BID ROSA Last Admin: 08/20/18 10:20 Dose: 1 each Buprenorphine/Naloxone (Suboxone 8 Mg-2 Mg Sl Film) each SL FILM TID ROSA Clonazepam (Klonopin Tab(*)) 1 mg PO BID PRN PRN Reason: AGITATION/ANXIETY Last Admin: 08/20/18 10:20 Dose: 1 mg Device (Nicotine Mouth Piece*) 1 each INH ONCE PRN PRN Reason: CRAVINGS Gabapentin (Neurontin Cap(*)) 600 mg PO BID ROSA Sodium Chloride (Ns 0.9% 1000 Ml*) 1,000 mls @ 250 mls/hr IV PER RATE [facility] Lactulose (Lactulose*) 15 ml PO TID [facility] Last Admin: 08/20/18 08:30 Dose: 15 ml Nicotine (Nicotine Inhaler*) 10 mg INH Q2H PRN PRN Reason: CRAVING Ondansetron HCl (Zofran Inj*) 4 mg IV Q4H PRN PRN Reason: NAUSEA/VOMITING Ropinirole HCl (Requip Tab*) 2 mg PO DAILY [facility] Vital Signs - 8 hr 08/20/18 08/20/18 08/20/18 04:21 04:51 05:30 Temperature 99 F Pulse Rate 91 94 86 Respiratory 17 Rate Blood Pressure 115/69 129/59 111/36 (mmHg) O2 Sat by Pulse 97 90 95 Oximetry 08/20/18 08/20/18 08/20/18 05:39 07:40 08:00 Temperature 101.6 F 98.8 F Pulse Rate 94 82 Respiratory 16 20 18 Rate Blood Pressure 129/59 118/57 (mmHg) O2 Sat by Pulse 96 96 Oximetry 08/20/18 08/20/18 10:20 12:02 Temperature Pulse Rate Respiratory 20 18 Rate Blood Pressure (mmHg) O2 Sat by Pulse Oximetry Oxygen Devices in Use Now: None Appearance: 32 yo M in nAD, aAOx3 Eyes: No Scleral Icterus, PERRLA Ears/Nose/Mouth/Throat: NL Teeth, Lips, Gums, Mucous Membranes Moist Neck: NL Appearance and Movements; NL JVP, Trachea Midline Respiratory: Symmetrical Chest Expansion and Respiratory Effort, Clear to Auscultation Cardiovascular: NL Sounds; No Murmurs; No JVD, RRR Abdominal: NL Sounds; No Tenderness; No Distention Lymphatic: No Cervical Adenopathy Extremities: No Clubbing, Cyanosis, - - R ankle with mild edema, superficial abrasions on toes and ankle, mild erythema, ROM intact,although it hurts pt to move ankle Skin: - - aparf for R ankle, mild erythema on buttocks, no abrasions Neurological: Alert and Oriented x 3, NL Muscle Strength and Tone Result Diagrams: 08/20/18 02:22 08/20/18 02:22 Assess/Plan/Problems-Billing Assessment: 32 yo m with h/o polysubstance abuse on Suboxone(Dr. Lawrence, [facility] ), brought in by the police with suicidal ideation. Tx with Ketamine in ED, got sedated and noted to have rhabdo - Patient Problems (1) Rhabdomyolysis Comment: Still too painful for pt to ambulate. Ankle Xrays neg for fx, likley sprain. Asked RN to provide with soft boot and PT eval ordered. cont IVF (2) Polysubstance (including opioids) dependence with physiological dependence Comment: Called Stephania Terrell([facility]), pt can be seen at [facility] on 08/21/18 if comes to appt at 1 PM. Restarted pt's Suboxone, Clonazepam, gabapentin Holding Concerta due to h/o recent agitation (3) Suicidal behavior Comment: cleared by Dr. Borrero. Pt made statements when intoxicated. Denies SI now (4) Serum ammonia increased Comment: will recheck in AM, not clearly encephalopathic (5) DVT prophylaxis Comment: ambulation Status and Disposition: OBV
[2018-08-20] MEDS ORDERED: rOPINIRole TAB* 1 MG PO SCH ×2 (13:00→21:00)
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
--- NOTE | 2018-08-20 13:36 | CONSULT ---
Consult Consult: As this clinician entered the patient's room to inform him that he can follow up with [facility], he is tearful and yelling loudly, demanding immediate discharge from the hospital. When I ask him what the solution to his problems might be, he states "a 12-gauge shot gun!" The patient is informed that I am now obligated to place him on a 9.39 legal status and transfer him to the [facility]. 4-S and 2-N staff notified, as is Dr. Paulson.
[2018-08-20] MEDS ORDERED: chlorproMAZINE INJ* 25 MG/ML 2 ML (50 MG) IM ONE (14:00)
[2018-08-20] MEDS: Buprenorp/Nalox 8-2 MG FILM 1 EACH SL FILM SCH ×2 (14:15→20:51)
[2018-08-20] MEDS ORDERED: Gabapentin CAP(*) 300 MG ONE (15:14)
[2018-08-20] MEDS ORDERED: Gabapentin CAP(*) 300 MG PO ONE (15:30)
[2018-08-20 15:31] VITALS: BP 151/63
[2018-08-20] MEDS: Ibuprofen TAB* 400 MG PO PRN (20:48)
[2018-08-20] MEDS: Gabapentin CAP(*) 300 MG PO SCH (20:48)
--- NOTE | 2018-08-21 04:15 | DS ---
CC: BELA Rosa; Dr. Borrero * DISCHARGE SUMMARY: DATE OF ADMISSION: 08/20/18 DATE OF DISCHARGE AND TRANSFER TO MENTAL HEALTH UNIT FOR INVOLUNTARY ADMISSION: 08/20/18 PRIMARY CARE PROVIDER: BELA Rosa. DISCHARGE DIAGNOSES: 1. Trauma rhabdomyolysis. 2. Agitation and altered mental status due to polysubstance abuse and overdose. SECONDARY DIAGNOSES: 1. History of polysubstance abuse, currently on Suboxone. 2. History of depression. 3. History of posttraumatic stress disorder. MEDICATIONS AT HOME: Included: 1. Klonopin 1 mg b.i.d. as needed. 2. Requip 2 mg daily. 3. Gabapentin 600 mg b.i.d. 4. Suboxone 8 mg 3 times a day. 5. Concerta 18 mg b.i.d. LABORATORY DATA AND STUDIES PERFORMED DURING THE HOSPITAL STAY: Included: On 08/20/18: White blood cell count 7.0, hemoglobin of 13.3, hematocrit of 42, and platelets of 189. Sodium was 139, potassium 4.3, chloride 103, carbon dioxide 31, BUN 13, creatinine 0.94. Last CPK obtained at 2:00 a.m. on was 4891. The patient's ammonia was mildly elevated at 63. The patient refused to have further CPK drawn during the hospital stay. The patient's TSH was noted to be 1.94 on 08/18/18. Right ankle x-ray obtained on 08/20/18. Impression: "Soft tissue swelling. No fracture is seen." HOSPITALIZATION COURSE: Landon Bhatia is a 32-year-old male with history of polysubstance abuse who was brought to the emergency department by police. As per the police, the patient was kicking on the doors and banging, agitated. The doors were the doors to his girlfriend's room at [facility]. He at that point was voicing suicidal or homicidal statements. He was brought into the hospital and he was markedly agitated. He was sedated with ketamine in the ER, later on had problems with oxygenation and marked lethargy and sedation. Eventually, 30 hours into his stay in the emergency department, he woke up complaining of lower extremity and buttock pain. His CPK was noted to be close to 5000 and he was admitted to the medical floor for evaluation. During the remainder of his medical stay on 08/20/18, the patient was less lethargic. He was evaluated by Dr. Borrero and initially cleared by the psychiatrist. The plan was for the patient to stay another night since he still required intravenous hydration. The patient also felt too weak to go home and in too much pain. His right ankle was swollen, likely due to sprain. That was evaluated further with an x-ray and no fractures were seen. Nevertheless, the patient was able to ambulate without any problems. At some point during his hospital stay on 08/20/18, the patient received a phone call that got him very upset that his girlfriend has another male partner. At that point, he requested to be discharged and he was almost in the process of being discharged against medical advice, when Dr. Borrero came in to reevaluate the patient and at that point, the patient voiced homicidal ideations and that he is going to shoot someone. At this point, Dr. Borrero is going to admit the patient involuntarily to Mental Health Unit. For further details of the patient's hospitalization, please see daily progress notes in which the most recent physical exam is also included. The patient is going to be transferred to a Mental Health Unit involuntarily for homicidal ideation. His CPKs are going to be obtained in the morning after he is psychiatrically stabilized and hopefully willing to participate in blood draws. [id number]/[facility]PS #: [id number] MTDD
[2018-08-21] MEDS: clonazePAM TAB(*) 1 MG PO PRN ×2 (08:38→14:24)
[2018-08-21] MEDS: Gabapentin CAP(*) 300 MG PO SCH (08:38)
[2018-08-21] MEDS: Buprenorp/Nalox 8-2 MG FILM 1 EACH SL FILM SCH ×2 (08:38→14:16)
[2018-08-21] MEDS: Ibuprofen TAB* 400 MG PO PRN (11:32)
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
== END 2018-08-21 16:35 | disposition home or self-care (01) | DRG 773 ==
LOC: ED 22:03 → MEDTELE 08-20 04:07 → OBSVTOIN 08-20 14:00 → UNDODISOB 08-20 14:07 → BSU 08-20 14:46
PROVIDERS: ADMIT Pediatrics; ATTEND Hospitalist
DX: F11.94 Opioid use, unspecified with opioid-induced mood disorder (principal); F14.229 Cocaine dependence with intoxication, unspecified; X58.XXXA Exposure to other specified factors, initial encounter; T79.6XXA Traumatic ischemia of muscle, initial encounter; F12.229 Cannabis dependence with intoxication, unspecified; F15.229 Other stimulant dependence with intoxication, unspecified; F13.229 Sedative, hypnotic or anxiolytic dependence with intoxication, unspecified; S93.401A Sprain of unspecified ligament of right ankle, initial encounter; I10 Essential (primary) hypertension; E78.00 Pure hypercholesterolemia, unspecified; F41.9 Anxiety disorder, unspecified; F17.210 Nicotine dependence, cigarettes, uncomplicated; R45.850 Homicidal ideations; F43.10 Post-traumatic stress disorder, unspecified; F32.9 Major depressive disorder, single episode, unspecified; F90.9 Attention-deficit hyperactivity disorder, unspecified type; Z59.0 Homelessness; Z82.49 Family history of ischemic heart disease and other diseases of the circulatory system; Y92.9 Unspecified place or not applicable; Z88.8 Allergy status to other drugs, medicaments and biological substances; Z84.1 Family history of disorders of kidney and ureter; Z72.89 Other problems related to lifestyle
CPT/HCPCS: 36415; 36600; 70450; 80048; 80053; 80307; 80320; 80329; 81003; 82140; 82247; 82550; 82803; 84075; 84443; 84450; 84460; 85025; 86140; 93005; 99222; 99238; 99285; A9270-GY; G0480

== ENCOUNTER 2018-10-24 19:33 | Emergency (ER) | payer OTHER ==
[2018-10-24 19:49] VITALS: BP 127/74
== END 2018-10-24 21:03 | disposition left against medical advice (07) ==
LOC: ED 19:33
DX: M25.511 Pain in right shoulder (principal); Z53.21 Procedure and treatment not carried out due to patient leaving prior to being seen by health care provider

== ENCOUNTER 2018-11-16 00:17 | Emergency (ER) | payer OTHER ==
--- NOTE | 2018-11-16 02:59 | ED ---
Skin Complaint - HPI Summary HPI Summary: This patient is a 33 year old M presenting to [facility] accompanied by family with a chief complaint of abscess on L forearm that began 4 days ago. Patient states he had a relapse and that caused the abscess. The patient rates the pain 10/10 in severity. Symptoms aggravated by nothing. Symptoms alleviated by nothing. Patient reports nausea and diarrhea. - History of Current Complaint Chief Complaint: EDRashSkinAbscess Time Seen by Provider: 11/16/18 02:50 Stated Complaint: ABSCESS ON LEFT ARM PER PT Hx Obtained From: Patient Onset/Duration: Started Days Ago, Still Present Skin Exposure Onset/Duration: Days Ago Timing: Constant Onset Severity: Severe Current Severity: Severe Pain Intensity: 10 Pain Scale Used: 0-10 Numeric Skin Location: Arm Aggravating Symptom(s): Nothing Alleviating Symptom(s): Nothing Associated Signs & Symptoms: Nausea - Allergy/Home Medications Allergies/Adverse Reactions: Allergies Allergy/AdvReac Type Severity Reaction Status Date / Time haloperidol Allergy Anaphylatic Verified 11/16/18 00:22 Shock piperacillin [From Zosyn] Allergy Hives Verified 11/16/18 00:22 tazobactam [From Zosyn] Allergy Hives Verified 11/16/18 00:22 Home Medications: Home Medications Escitalopram Oxalate [Lexapro 10 mg] 10 mg PO DAILY 11/16/18 [History Confirmed 11/16/18] Methylphenidate ER [Concerta] 27 mg PO BID 11/16/18 [History Confirmed 11/16/18] Ropinirole HCl [Requip] 2 mg PO DAILY 11/16/18 [History Confirmed 11/16/18] PMH/Surg Hx/FS Hx/Imm Hx Previously Healthy: No Endocrine/Hematology History: Reports: Hx Diabetes Cardiovascular History: Reports: Hx Hypercholesterolemia, Hx Hypertension Respiratory History: Reports: Other Respiratory Problems/Disorders - Smoker Sensory History: Denies: Hx Contacts or Glasses, Hx Hearing Aid Opthamlomology History: Denies: Hx Contacts or Glasses Psychiatric History: Reports: Hx Anxiety, Hx Depression, Hx Post Traumatic Stress Disorder, Hx Suicide Attempt - Suicidal idealation, Other Psychiatric Issues/Disorders - Substance abuse Denies: Hx Eating Disorder, Hx of Violent Episodes Against Others - Surgical History Surgery Procedure, Year, and Place: Appendectomy Infectious Disease History: No Infectious Disease History: Reports: Hx Hepatitis - Hepatitis C per patient Denies: Traveled Outside the [place] in Last 30 Days - Family History Known Family History: Positive: Cardiac Disease, Renal Disease - Social History Occupation: Unemployed Lives: With Family Alcohol Use: None Alcohol Amount: states he had one beer today Hx Substance Use: Yes Substance Use Type: Reports: Cocaine, Heroin, Marijuana, Prescribed, Sedatives Substance Use Comment - Amount & Last Used: xANAX as needed, bath salts Hx Tobacco Use: Yes Smoking Status (MU): Heavy Every Day Tobacco Smoker Amount Used/How Often: 1ppd Review of Systems Positive: Diarrhea, Nausea Positive: Other - Positive abscess All Other Systems Reviewed And Are Negative: Yes Physical Exam - Summary Physical Exam Summary: VITAL SIGNS: Reviewed. GENERAL: Patient is a well-developed and nourished male who is lying comfortable in the stretcher. Patient is not in any acute respiratory distress. HEAD AND FACE: No signs of trauma. No ecchymosis, hematomas or skull depressions. No sinus tenderness. EYES: PERRLA, EOMI x 2, No injected conjunctiva, no nystagmus. EARS: Hearing grossly intact. Ear canals and tympanic membranes are within normal limits. MOUTH: Oropharynx within normal limits. NECK: Supple, trachea is midline, no adenopathy, no JVD, no carotid bruit, no c- spine tenderness, neck with full ROM. CHEST: Symmetric, no tenderness at palpation LUNGS: Clear to auscultation bilaterally. No wheezing or crackles. CVS: Regular rate and rhythm, S1 and S2 present, no murmurs or gallops appreciated. ABDOMEN: Soft, non-tender. No signs of distention. No rebound no guarding, and no masses palpated. Bowel sounds are normal. EXTREMITIES: FROM in all major joints, no edema, no cyanosis or clubbing. NEURO: Alert and oriented x 3. No acute neurological deficits. Speech is normal and follows commands. SKIN: Dry and warm. Fluctuant tender swelling over the proximal left arm laterally over the ventral surface. Triage Information Reviewed: Yes Vital Signs On Initial Exam: Initial Vitals Temp Pulse Resp BP Pulse Ox 98.5 F 85 18 162/81 100 11/16/18 00:19 11/16/18 00:19 11/16/18 00:19 11/16/18 00:19 11/16/18 00:19 Vital Signs Reviewed: Yes Diagnostics - Vital Signs Vital Signs Temp Pulse Resp BP Pulse Ox 11/16/18 00:19 98.5 F 85 18 162/81 100 - Laboratory Lab Statement: Any lab studies that have been ordered have been reviewed, and results considered in the medical decision making process. Course/Dx - Course Course Of Treatment: This patient is a 33 year old M presenting to [facility] accompanied by family with a chief complaint of abscess on L forearm that began 4 days ago. Physical Exam Findings: Fluctuant tender swelling over the proximal left arm laterally over the ventral surface. I had discussion with patient and told him the abscess needs to be drained. Pt seemed reluctant. Pt stated he only wanted antibiotics. We left the room; the patient will think about it and decide. In the ED course the patient was given Clindamycin. Pt refused I&D for his abscess. Pt advised that antibiotic is not sufficient for his abscess treatment. Pt insisted not to have I&D done. So patient will be given antibiotics. Patient will be discharged with prescription for Clindamycin and follow up from PCP. The patient is agreeable with this plan. - Diagnoses Provider Diagnoses: Abscess of left arm Discharge - Sign-Out/Discharge Documenting (check all that apply): Patient Departure - Discharge home Patient Received Moderate/Deep Sedation with Procedure: No - Discharge Plan Condition: Stable Disposition: HOME Prescriptions: Clindamycin Cap(NF) [Clindamycin Cap 300 mg Cap(NF)] 300 mg PO Q6H #28 cap Patient Education Materials: Abscess (ED) Referrals: [facility] PH[facility]IAN REFERRAL [Outside] - 2 Days Additional Instructions: RETURN TO THE EMERGENCY DEPARTMENT FOR NEW OR WORSENING SYMPTOMS - Attestation Statements Document Initiated by Scribe: Yes Documenting Scribe: Nevin Brower Provider For Whom Jacey is Documenting (Include Credential): Dr. Filiberto Haley MD Scribe Attestation: INevin, scribed for Dr. Filiberto Haley MD on 11/16/18 at 0357. Status of Scribe Document: Ready
[2018-11-16] MEDS ORDERED: Clindamycin CAP* 150 MG PO ONE (03:11)
[2018-11-16 04:08] VITALS: BP 0/0
== END 2018-11-16 04:07 | disposition home or self-care (01) ==
LOC: ED 00:17
DX: L02.414 Cutaneous abscess of left upper limb (principal); R11.0 Nausea; R19.7 Diarrhea, unspecified; F41.9 Anxiety disorder, unspecified; F32.9 Major depressive disorder, single episode, unspecified; Z88.8 Allergy status to other drugs, medicaments and biological substances; F17.200 Nicotine dependence, unspecified, uncomplicated
CPT/HCPCS: 99282; A9270-GY

== ENCOUNTER 2019-01-23 11:26 | Emergency (ER) | payer OTHER ==
[2019-01-23 11:39] VITALS: BP 128/70
[2019-01-23] MEDS ORDERED: Ketorolac INJ* 60 MG/2 ML VIAL IM ONE (11:54)
--- NOTE | 2019-01-23 12:00 | UC ---
Lower Extremity/Ankle HPI - HPI Summary HPI Summary: Patient is a 33-year-old male who presents to the urgent care with chief complaint of left foot and ankle pain. Patient reports that he fell out of a ladder a couple days ago and since then the patient is be having pain. He reports that he is unable to bear weight in the left foot. Pain is 8/10. Pain is nonradiating. Patient has no other complaints. He denies any hip pain, he denies any back pain, he denies any abdominal pain. - History of Current Complaint Chief Complaint: UCLowerExtremity Stated Complaint: LT FOOT INJURY Time Seen by Provider: 01/23/19 11:43 Hx Obtained From: Patient Onset/Duration: Sudden Onset Severity Initially: Mild Severity Currently: Moderate Pain Intensity: 10 - Allergies/Home Medications Allergies/Adverse Reactions: Allergies Allergy/AdvReac Type Severity Reaction Status Date / Time haloperidol Allergy Anaphylatic Verified 01/23/19 11:38 Shock piperacillin [From Zosyn] Allergy Hives Verified 01/23/19 11:38 tazobactam [From Zosyn] Allergy Hives Verified 01/23/19 11:38 PMH/Surg Hx/FS Hx/Imm Hx Psychological History: Other - Polysubstance abuse - Surgical History Surgical History: Yes Surgery Procedure, Year, and Place: Appendectomy, ORIF LT LEG - Family History Known Family History: Positive: Cardiac Disease, Renal Disease - Social History Alcohol Use: None Alcohol Amount: states he had one beer today Substance Use Type: Cocaine, Heroin, Marijuana, Prescribed, Sedatives Substance Use Comment - Amount & Last Used: xANAX as needed, bath salts Smoking Status (MU): Heavy Every Day Tobacco Smoker Amount Used/How Often: 1ppd Household Exposure Type: Cigarettes Review of Systems All Other Systems Reviewed And Are Negative: Yes Constitutional: Positive: Negative Skin: Positive: Negative Eyes: Positive: Negative ENT: Positive: Negative Respiratory: Positive: Negative Cardiovascular: Positive: Negative Gastrointestinal: Positive: Negative Genitourinary: Positive: Negative Motor: Positive: Negative Neurovascular: Positive: Negative Musculoskeletal: Positive: Negative, Other: - left foot pain Neurological: Positive: Negative Psychological: Positive: Negative Is Patient Immunocompromised?: No Physical Exam - Summary Physical Exam Summary: GENERAL: Patient is a well developed and nourished male who is lying comfortable in the stretcher. Patient is not in any acute respiratory distress. HEAD AND FACE: No signs of trauma. No ecchymosis, hematomas or skull depressions. No sinus tenderness. EYES: PERRLA, EOMI x 2, No injected conjunctiva, no nystagmus. EARS: Hearing grossly intact. Ear canals and tympanic membranes are within normal limits. MOUTH: Oropharynx within normal limits. NECK: Supple, trachea is midline, no adenopathy, no JVD, no carotid bruit, no c- spine tenderness, neck with full ROM. CHEST: Symmetric, no tenderness at palpation LUNGS: Clear to auscultation bilaterally. No wheezing or crackles. CVS: Regular rate and rhythm, S1 and S2 present, no murmurs or gallops appreciated. ABDOMEN: Soft, non-tender. No signs of distention. No rebound no guarding, and no masses palpated. Bowel sounds are normal. EXTREMITIES: left foot tenderness at palpation in the left heel. No deformity, no echymosis NEURO: Alert and oriented x 3. No acute neurological deficits. Speech is normal and follows commands. SKIN: Dry and warm Triage Information Reviewed: Yes Appearance: Well-Appearing, No Pain Distress, Well-Nourished Vital Signs: Initial Vital Signs Temp 99.1 F 01/23/19 11:33 Pulse 68 01/23/19 11:33 Resp 18 01/23/19 11:33 BP 128/70 01/23/19 11:33 Pulse Ox 98 01/23/19 11:33 Diagnostics - Radiology ankle and foot x-ray Radiology Interpretation Completed By: Radiologist - Negative for fracture or articular malalignment at the LEFT ankle or foot. Tiny accessory ossicle noted posterior to the talocrural joint. Preserved joint spaces. Mild soft tissue swelling over the lateral malleolus. Lower Extremity Course/Dx - Course Course Of Treatment: Foot and ankle x ray impression: #. Negative for fracture or articular malalignment at the LEFT ankle or foot. Tiny accessory ossicle noted posterior to the talocrural joint. Preserved joint spaces. Mild soft tissue swelling over the lateral malleolus. X-ray shows no fracture dislocation. However the patient continues to have pain therefore the patient was given Toradol for pain. Placed in a posterior splint. The patient is neurovascularly intact before and after the splint. Patient was given crutches and he was recommended to follow up with the primary care physician in next 2-3 days. Patient understands and agrees. - Differential Dx/Diagnosis Provider Diagnosis: Ankle pain, Foot pain Discharge - Sign-Out/Discharge Documenting (check all that apply): Patient Departure All imaging exams completed and their final reports reviewed: Yes - Discharge Plan Condition: Stable Disposition: HOME Patient Education Materials: Arthralgia (ED), Swollen Joint (ED) Referrals: No Primary Care Phys,NOPCP [Primary Care Provider] - [facility] [Outside] Additional Instructions: F/u with PCP in 2-3 days. Take ibuprofen for pain. elevate leg and use ice as tolerated Use crutches as indicated - Billing Disposition and Condition Condition: STABLE Disposition: Home
== END 2019-01-23 13:28 | disposition home or self-care (01) ==
LOC: UCEAST 11:26
DX: M25.572 Pain in left ankle and joints of left foot (principal); F17.210 Nicotine dependence, cigarettes, uncomplicated; Z88.8 Allergy status to other drugs, medicaments and biological substances; Z88.0 Allergy status to penicillin
CPT/HCPCS: 36415; 86703; 96372; 99212; G0463; J1885

== ENCOUNTER 2019-04-17 03:49 | Emergency (ER) | payer OTHER ==
[2019-04-17 03:54] VITALS: BP 159/86
== END 2019-04-17 04:04 | disposition left against medical advice (07) ==
LOC: ED 03:49
DX: Z53.21 Procedure and treatment not carried out due to patient leaving prior to being seen by health care provider (principal)
CPT/HCPCS: 99281

== ENCOUNTER 2019-04-17 04:06 | Emergency (ER) | payer OTHER ==
[2019-04-17 04:14] VITALS: BP 150/90
--- NOTE | 2019-04-17 04:23 | ED ---
Psychiatric Complaint - HPI Summary HPI Summary: This pt is a 33 Y/O M presenting to [facility] with a CC of substance abuse. This pt states that he doesnt feel good and that he wants to get fixed. He states that hes depressed but denies any SI or HI. He states that he was seeing people earlier tonight. He stated that he was drinking and smoking regularly. He denies any SOB, CP, N/V, headaches, fevers, chills, and sore throat. He stated no aggravating or alleviating factors. He stated that he has a PMHx but was unwilling to discuss it. - History Of Current Complaint Time Seen by Provider: 04/17/19 04:09 Hx Obtained From: Patient Onset/Duration: Gradual Onset, Still Present Timing: Constant Severity Initially: Moderate Severity Currently: Moderate Character: Depressed Aggravating Factor(s): Nothing Alleviating Factor(s): Nothing Associated Signs And Symptoms: Positive: Hallucinating Has Suicidal: Denies: Thoughts, With A Plan Has Homicidal: Denies: Thoughts, With A Plan - Allergies/Home Medications Allergies/Adverse Reactions: Allergies Allergy/AdvReac Type Severity Reaction Status Date / Time haloperidol Allergy Anaphylatic Verified 04/17/19 04:14 Shock piperacillin [From Zosyn] Allergy Hives Verified 04/17/19 04:14 tazobactam [From Zosyn] Allergy Hives Verified 04/17/19 04:14 PMH/Surg Hx/FS Hx/Imm Hx Previously Healthy: Yes Endocrine/Hematology History: Denies: Hx Diabetes Cardiovascular History: Reports: Hx Hypercholesterolemia Denies: Hx Hypertension, Hx Pacemaker/ICD Respiratory History: Reports: Other Respiratory Problems/Disorders - Smoker Sensory History: Denies: Hx Contacts or Glasses, Hx Hearing Aid Opthamlomology History: Denies: Hx Contacts or Glasses Psychiatric History: Reports: Hx Anxiety, Hx Depression, Hx Post Traumatic Stress Disorder, Hx Suicide Attempt - Suicidal idealation, Other Psychiatric Issues/Disorders - Substance abuse Denies: Hx Eating Disorder, Hx Panic Disorder, Hx of Violent Episodes Against Others - Surgical History Surgery Procedure, Year, and Place: Appendectomy, ORIF LT LEG Infectious Disease History: Yes Infectious Disease History: Reports: Hx Hepatitis - Hepatitis C per patient Denies: Traveled Outside the [place] in Last 30 Days - Family History Known Family History: Positive: Cardiac Disease, Renal Disease - Social History Alcohol Use: None Alcohol Amount: states he had one beer today Hx Substance Use: Yes Substance Use Type: Reports: Cocaine, Heroin, Marijuana, Prescribed, Sedatives Substance Use Comment - Amount & Last Used: xANAX as needed, bath salts Hx Tobacco Use: Yes Smoking Status (MU): Heavy Every Day Tobacco Smoker Amount Used/How Often: 1ppd Review of Systems Negative: Fever, Chills Negative: Sore Throat Negative: Chest Pain Negative: Shortness Of Breath Negative: Vomiting, Nausea Negative: Headache Psychological: Other - denies any SI or HI Positive: Depressed, Other - Pt stated visual hallucinations All Other Systems Reviewed And Are Negative: Yes Physical Exam - Summary Physical Exam Summary: Appearance: Well appearing, no pain distress Skin: warm, dry, reflects adequate perfusion Head/face: normal Eyes: EOMI, LEIGH ANN ENT: normal Neck: supple, non-tender Respiratory: CTA, breath sounds present Cardiovascular: RRR, pulses symmetrical Abdomen: non-tender, soft Musculoskeletal: normal, strength/ROM intact Neuro: normal, sensory motor intact, A&Ox3 Psych: depressed affect Triage Information Reviewed: Yes Vital Signs On Initial Exam: Initial Vitals Temp Pulse Resp BP Pulse Ox 98.5 F 97 16 150/90 100 04/17/19 04:12 04/17/19 04:12 04/17/19 04:12 04/17/19 04:12 04/17/19 04:12 Vital Signs Reviewed: Yes Diagnostics - Vital Signs Vital Signs Temp Pulse Resp BP Pulse Ox 04/17/19 04:12 98.5 F 97 16 150/90 100 - Laboratory Result Diagrams: 04/17/19 04:35 Lab Statement: Any lab studies that have been ordered have been reviewed, and results considered in the medical decision making process. Course/Dx - Course Course Of Treatment: This pt is a 33 Y/O M presenting to [facility] with a CC of substance abuse. This pt states that he doesnt feel good and that he wants to get fixed. His PE found that he has a depressed affect. This pt eloped before he could get a MHE. - Differential Dx/Clinical Impression Provider Diagnosis: Depression Discharge - Sign-Out/Discharge Documenting (check all that apply): Patient Departure - eloped Patient Received Moderate/Deep Sedation with Procedure: No - Discharge Plan Condition: Stable Disposition: ELOPEMENT Referrals: No Primary Care Phys,NOPCP [Primary Care Provider] - - Billing Disposition and Condition Condition: STABLE Disposition: Elopement - Attestation Statements Document Initiated by Scriblasha: Yes Documenting Scribe: Beto Handy Provider For Whom Jacey is Documenting (Include Credential): Woodrow Mota MD Scribe Attestation: Beto Ventura, scribed for Woodrow Mota MD on 04/17/19 at 2158. Scribe Documentation Reviewed: Yes Provider Attestation: The documentation as recorded by the Beto jaimes accurately reflects the service I personally performed and the decisions made by , Woodrow Mota MD Status of Scribe Document: Viewed
[2019-04-17 05:23] LABS: Acetaminophen < 15 mcg/mL; Alcohol < 10 mg/dL (<10); Salicylate < 2.50 mg/dL (<30)
[2019-04-17 05:33] LABS: Albumin 4.2 g/dL (3.2-5.2); Anion Gap 10 mmol/L (2-11); CO2 Carbon Dioxide 20 mmol/L (22-32); Calcium 8.9 mg/dL (8.6-10.3); Chloride 103 mmol/L (101-111); Potassium 3.8 mmol/L (3.5-5.0); Sodium 133 mmol/L (135-145)
[2019-04-17 05:39] LABS: ALT 249 U/L (7-52); AST 126 U/L (13-39); Albumin/Globulin Ratio 1.4 (1-3); Alkaline Phosphatase 55 U/L (34-104); BUN/Creatinine Ratio 34.7 (8-20); Blood Urea Nitrogen 25 mg/dL (6-24); EGFR African American 154.1 (>60); EGFR Non-African American 127.3 (>60); Glucose 100 mg/dL (70-100); TSH (Thyroid Stimulating Horm) 1.08 mcIU/mL (0.34-5.60); Total Protein 7.2 g/dL (6.4-8.9)
== END 2019-04-17 05:09 | disposition left against medical advice (07) ==
LOC: ED 04:06
DX: F32.9 Major depressive disorder, single episode, unspecified (principal); E78.00 Pure hypercholesterolemia, unspecified; F41.9 Anxiety disorder, unspecified; F43.10 Post-traumatic stress disorder, unspecified; F17.210 Nicotine dependence, cigarettes, uncomplicated; Z79.899 Other long term (current) drug therapy; Z88.0 Allergy status to penicillin; Z88.8 Allergy status to other drugs, medicaments and biological substances
CPT/HCPCS: 36415; 80053; 80320; 80329; 84443; 99282; G0480

== ENCOUNTER 2019-05-10 15:51 | Emergency (ER) | payer SELFPAY ==
--- NOTE | 2019-05-10 16:19 | ED ---
Substance Abuse/Use - HPI Summary HPI Summary: This patient is a 33 year old male brought in by EMS and law enforcement presenting to [facility] with a chief complaint of suspected drug overdose. The patient was found with prescription medications that were not his including suboxone. Patient is altered mentally and not responsive to questions. LEVEL 5 CAVEAT: HPI UNOBTAINABLE DUE TO PATIENT INTOXICATION - History Of Current Complaint Chief Complaint: EDOverdose Stated Complaint: OVERDOSE PER EMS Time Seen by Provider: 05/10/19 16:08 Hx Obtained From: EMS, Other: - Law Enforcement Ingestion History: Type/Name Of Drug - Suboxone suspected - Allergies/Home Medications Allergies/Adverse Reactions: Allergies Allergy/AdvReac Type Severity Reaction Status Date / Time haloperidol Allergy Anaphylatic Verified 04/17/19 04:14 Shock piperacillin [From Zosyn] Allergy Hives Verified 04/17/19 04:14 tazobactam [From Zosyn] Allergy Hives Verified 04/17/19 04:14 Home Medications: Home Medications Escitalopram * [Lexapro 10 mg (NF)] 10 mg PO DAILY 05/10/19 [History Confirmed 05/10/19] Gabapentin CAP(*) [Neurontin 300 CAP(*)] 600 mg PO QID 05/10/19 [History Confirmed 05/10/19] rOPINIRole TAB* [Requip TAB*] 2 mg PO DAILY 05/10/19 [History Confirmed 05/10/19 ] PMH/Surg Hx/FS Hx/Imm Hx Endocrine/Hematology History: Denies: Hx Diabetes Cardiovascular History: Reports: Hx Hypercholesterolemia Denies: Hx Hypertension, Hx Pacemaker/ICD Respiratory History: Reports: Other Respiratory Problems/Disorders - Smoker Sensory History: Denies: Hx Contacts or Glasses, Hx Hearing Aid Opthamlomology History: Denies: Hx Contacts or Glasses Psychiatric History: Reports: Hx Anxiety, Hx Depression, Hx Post Traumatic Stress Disorder, Hx Suicide Attempt - Suicidal idealation, Other Psychiatric Issues/Disorders - Substance abuse Denies: Hx Eating Disorder, Hx Panic Disorder, Hx of Violent Episodes Against Others - Surgical History Surgery Procedure, Year, and Place: Appendectomy, ORIF LT LEG Infectious Disease History: No Infectious Disease History: Reports: Hx Hepatitis - Hepatitis C per patient Denies: Traveled Outside the [place] in Last 30 Days - Family History Known Family History: Positive: Cardiac Disease, Renal Disease - Social History Alcohol Use: None Alcohol Amount: states he had one beer today Hx Substance Use: Yes Substance Use Type: Reports: Cocaine, Heroin, Marijuana, Prescribed, Sedatives Substance Use Comment - Amount & Last Used: xANAX as needed, bath salts Hx Tobacco Use: Yes Smoking Status (MU): Heavy Every Day Tobacco Smoker Amount Used/How Often: 1ppd - Additional Comments History Additional Comments: LEVEL 5 CAVEAT: PMH LIMITED DUE TO PATIENT INTOXICATION Review of Systems Neurological: Other - Altered mental status All Other Systems Reviewed And Are Negative: No - Comments Additional Review of Systems Comments: LEVEL 5 CAVEAT: ROS UNOBTAINABLE DUE TO PATIENT INTOXICATION Physical Exam - Summary Physical Exam Summary: Constitutional: Well-developed, Well-nourished, Alert. (-) Distressed Skin: Warm, Dry HENT: Normocephalic; Atraumatic Eyes: Conjunctiva normal. 2 mm reactive Neck: Musculoskeletal ROM normal neck. (-) JVD, (-) Stridor, (-) Tracheal deviation Cardio: Rhythm regular, rate normal, Heart sounds normal; Intact distal pulses; The pedal pulses are 2+ and symmetric. Radial pulses are 2+ and symmetric. (-) Murmur Pulmonary/Chest wall: Effort normal. (-) Respiratory distress, (-) Wheezes, (-) Rales Abd: Soft, (-) tenderness, (-) Distension, (-) Guarding, (-) Rebound Musculoskeletal: (-) Edema Lymph: (-) Cervical adenopathy Neuro: Responds to loud verbal stimuli, slurred speech, does not answer any questions meaningfully. Triage Information Reviewed: Yes Vital Signs On Initial Exam: Initial Vitals Temp Pulse Resp BP Pulse Ox 98.3 F 60 12 138/72 99 05/10/19 15:56 05/10/19 15:56 05/10/19 15:56 05/10/19 15:56 05/10/19 15:56 Vital Signs Reviewed: Yes Completion Of Physical Exam Limited Due To: Level 5 Diagnostics - Vital Signs Vital Signs Temp Pulse Resp BP Pulse Ox 05/10/19 15:56 98.3 F 60 12 138/72 99 - Laboratory Result Diagrams: 05/10/19 16:16 05/10/19 16:16 Lab Statement: Any lab studies that have been ordered have been reviewed, and results considered in the medical decision making process. - EKG 1637 Cardiac Rate: Bradycardia - 50 BPM EKG Rhythm: Sinus Bradycardia Summary of EKG Findings: No STEMI. Course/Dx - Course Course Of Treatment: This patient is a 33 year old male brought in by EMS and law enforcement presenting to [facility] with a chief complaint of suspected drug overdose. The patient will be signed out to Dr. Gallagher pending sobriety. - Diagnoses Provider Diagnoses: Drug overdose Discharge ED - Sign-Out/Discharge Documenting (check all that apply): Sign-Out Patient Signing out patient TO: Yamile Gallagher Patient Received Moderate/Deep Sedation with Procedure: No - Discharge Plan Referrals: No Primary Care Phys,NOPCP [Primary Care Provider] - - Attestation Statements Document Initiated by Scribe: Yes Documenting Scribe: Rocky Coronado Provider For Whom Scribe is Documenting (Include Credential): Raman Rodriguez MD Scribe Attestation: Rocky Ventura, scribed for Raman Rodriguez MD on 05/10/19 at 1906. Status of Scribe Document: Ready
[2019-05-10 16:29] LABS: ABS Eosinophils 0.1 10^3/ul (0-0.6); ABS Lymphocytes 2.4 10^3/ul (1.0-4.8); ABS Monocytes 0.5 10^3/ul (0-0.8); ABS Neutrophils 2.2 10^3/ul (1.5-7.7); Eosinophil % 2.5 %; Hematocrit 34 % (42-52); Hemoglobin 11.1 g/dL (14.0-18.0); Lymphocyte % 45.9 %; Mean Corpuscular HGB Conc 33 g/dL (31-36); Mean Corpuscular Hemoglobin 26 pg (27-31); Mean Corpuscular Volume 79 fL (80-94); Mean Platelet Volume 8.4 fL (7.4-10.4); Nucleated Red Blood Cells % 0.1; Platelet Count 239 10^3/uL (150-450); Red Blood Count 4.33 10^6 /uL (4.18-5.48); Red Cell Distribution Width 17 % (10-15); White Blood Count 5.3 10^3/uL (3.5-10.8)
[2019-05-10 17:03] LABS: ALT 185 U/L (7-52); AST 86 U/L (13-39); Albumin/Globulin Ratio 1.4 (1-3); Alkaline Phosphatase 52 U/L (34-104); Anion Gap 7 mmol/L (2-11); BUN/Creatinine Ratio 16.9 (8-20); Blood Urea Nitrogen 11 mg/dL (6-24); CO2 Carbon Dioxide 24 mmol/L (22-32); Chloride 107 mmol/L (101-111); EGFR African American 173.4 (>60); EGFR Non-African American 143.3 (>60); Globulin 2.9 g/dL (2-4); Glucose 99 mg/dL (70-100); Potassium 3.8 mmol/L (3.5-5.0); Sodium 138 mmol/L (135-145); Total Protein 6.9 g/dL (6.4-8.9)
[2019-05-10 17:13] LABS: Alcohol < 10 mg/dL (<10); Salicylate < 2.50 mg/dL (<30)
[2019-05-10 17:33] LABS: Acetaminophen < 15 mcg/mL
--- NOTE | 2019-05-10 19:26 | ED ---
Progress - Progress Note Progress Note: The patient is a sign-out from Dr. Raman Rodriguez MD, to Dr. Yamile Gallagher MD, at change of shift at 1900 on 05/10/2019, pending sobriety, UA, Brain CT, and disposition. UA reveals 1+ ketones, positive urobilinogen, and presence of ascorbic acid but is otherwise unremarkable. Brain CT is negative for acute intracranial abnormality. After patient has begun to wake up, he would like to be discharged home. We discussed all results and plan for discharge home. - Results/Orders Results/Orders: Brain CT Impression: No acute intracranial abnormality. ED physician has reviewed this imaging report. Re-Evaluation - Re-Evaluation First Eval Re-Evaluation Time: 23:00 Comment: Patient is still asleep. Second Eval Re-Evaluation Time: 05:40 Comment: Patient is arousable. Third Eval Re-Evaluation Time: 06:00 Comment: I have discussed results with the patient and sleepiness has improved. Discussed symptoms that warrant immediate return to ED. Course/Dx - Course Course Of Treatment: The patient is a sign-out from Dr. Raman Rodriguez MD, to Dr. Yamile Gallagher MD, at change of shift at 1900 on 05/10/2019, pending sobriety , UA, Brain CT, and disposition. UA reveals 1+ ketones, positive urobilinogen, and presence of ascorbic acid but is otherwise unremarkable. Brain CT is negative for acute intracranial abnormality. With improvement in mental state, the patient is clear for discharge home as he feels safe enough to go home. He understands and agrees with this plan. - Diagnoses Provider Diagnoses: Drug overdose, Substance abuse Discharge ED - Sign-Out/Discharge Documenting (check all that apply): Patient Departure - Patient will be discharged home., Receiving Sign-Out Receiving patient FROM: Raman Rodriguez - Patient is a sign-out from Dr. Raman Rodriguez MD, at 1900 on 05/10/2019, pending sobriety, UA, Brain CT, and disposition. Patient Received Moderate/Deep Sedation with Procedure: No - Discharge Plan Condition: Stable Disposition: HOME Patient Education Materials: Polysubstance Abuse (ED), Adult Overdose (ED) [facility] [Outside] - 3 Days Additional Instructions: Please follow up with your primary care physician within three days. Please return to ED for any new or worsening symptoms. - Billing Disposition and Condition Condition: STABLE Disposition: Home - Attestation Statements Document Initiated by Jacey: Yes Documenting Scribe: Claire Tao Provider For Whom Jacey is Documenting (Include Credential): Dr. Yamile Gallagher MD Scribe Attestation: Claire Ventura, scribed for Dr. Yamile Gallagher MD on 05/11/19 at 0618. Scribe Documentation Reviewed: Yes Provider Attestation: The documentation as recorded by the Claire jaimes accurately reflects the service I personally performed and the decisions made by me, Dr. Yamile Gallagher MD Status of Scribe Document: Viewed
[2019-05-10 20:16] LABS: Urine Appearance Clear; Urine Bilirubin Negative (Negative); Urine Blood Negative (Negative); Urine Color Yellow; Urine Glucose Negative (Negative); Urine Ketones 1+ (Negative); Urine Nitrite Negative (Negative); Urine Protein Negative (Negative); Urine Specific Gravity 1.028 (1.010-1.030); Urine Urobilinogen Positive (Negative)
[2019-05-10 20:36] LABS: Urine Benzodiazepine Screen None Detected (None Detect); Urine Opiates Screen None Detected (None Detect)
[2019-05-11 06:25] VITALS: BP 134/77
== END 2019-05-11 06:11 | disposition home or self-care (01) ==
LOC: ED 15:51
DX: T65.91XA Toxic effect of unspecified substance, accidental (unintentional), initial encounter (principal); Y92.9 Unspecified place or not applicable; R00.1 Bradycardia, unspecified; E78.00 Pure hypercholesterolemia, unspecified; B19.20 Unspecified viral hepatitis C without hepatic coma; F43.10 Post-traumatic stress disorder, unspecified; F17.210 Nicotine dependence, cigarettes, uncomplicated
CPT/HCPCS: 36415; 70450; 80053; 80307; 80320; 80329; 81003; 83605; 85025; 93005; 99285; G0480